=== PATIENT | female | born 1950 | race African-American/Black ===

== ENCOUNTER 2020-06-19 05:35 | Inpatient (IN) ==
[~2020-06-19 05:35] MED LIST: VANCOMYCIN INJ 1,000 MG in SODIUM CHLORIDE 0.9% 250 ML IV ONE; ceFAZolin 1,000 MG in SYRINGE 1 EACH IV ONE
[2020-06-19] MEDS ORDERED: ceFAZolin 1,000 MG VIAL ONE (06:06)
[2020-06-19] MEDS ORDERED: VANCOMYCIN INJ 1,000 MG in SODIUM CHLORIDE 0.9% 250 ML IV ONE (06:30)
[2020-06-19] MEDS ORDERED: ROPIVACAINE 0.5% 30 ML VIAL ONE (06:48)
[2020-06-19] MEDS ORDERED: DEXAMETHASONE 4 MG/1 ML VIAL ONE ×2 (06:48→09:05)
[2020-06-19] MEDS ORDERED: EPINEPHrine 1 MG/ML VIAL ONE (06:48)
[2020-06-19] MEDS ORDERED: BUPIVACAINE SPINAL 0.75% 2 ML AMP SPINAL ONE (06:49)
[2020-06-19] MEDS ORDERED: MIDAZOLAM 2 MG/2 ML VIAL ONE ×2 (06:54→08:49)
[2020-06-19] MEDS ORDERED: fentaNYL 100 MCG/2 ML VIAL ONE (06:54)
[2020-06-19] MEDS ORDERED: KETAMINE 500 MG/10 ML VIAL ONE (06:55)
[2020-06-19] MEDS ORDERED: FAMOTIDINE 20 MG TABLET PO ONE (07:18)
[2020-06-19] MEDS ORDERED: DIAZEPAM 5 MG TABLET PO ONE (07:18)
[2020-06-19] MEDS ORDERED: ACETAMINOPHEN 500 MG TABLET PO ONE (07:18)
[2020-06-19] MEDS ORDERED: ceFAZolin 1,000 MG in SYRINGE 1 EACH IV ONE (07:30)
[2020-06-19] MEDS ORDERED: LACTATED RINGERS 1,000 ML IV SCH (07:30)
[2020-06-19] MEDS ORDERED: PROMETHAZINE 25 MG/1 ML VIAL IM PRN (08:37)
[2020-06-19] MEDS ORDERED: LACTULOSE 20 GM/30 ML UDCUP PO PRN (08:37)
[2020-06-19] MEDS ORDERED: BISACODYL 10 MG SUPP RECTAL PRN (08:37)
[2020-06-19] MEDS ORDERED: diphenhydrAMINE CAP 25 MG CAPSULE PO PRN (08:37)
[2020-06-19] MEDS ORDERED: DEXTROSE 50% 25 GM/50 ML VIAL IV PRN (08:41)
[2020-06-19] MEDS ORDERED: GLUCAGON 1 MG VIAL IM PRN (08:41)
[2020-06-19] MEDS ORDERED: INSULIN NPH SCH (08:45)
[2020-06-19] MEDS ORDERED: [UNRECOGNIZED DRUG - OTHER] SCH (08:45)
[2020-06-19] MEDS ORDERED: SCOPOLAMINE 1.5 MG PATCH TRANSDERM ONE (08:49)
[2020-06-19] MEDS ORDERED: ONDANSETRON 4 MG/2 ML VIAL ONE (09:05)
[2020-06-19] MEDS ORDERED: SODIUM CHLORIDE 0.9% 250 ML IV ONE (09:05)
[2020-06-19] MEDS ORDERED: TRANEXAMIC ACID 1,000 MG/10 ML VIAL ONE (09:05)
[2020-06-19] MEDS ORDERED: propofoL 200 MG/20 ML VIAL IV ONE (09:05)
[2020-06-19] MEDS ORDERED: PHENYLEPHRINE 1 MG/10 ML SYRINGE IV ONE (09:05)
[2020-06-19] MEDS ORDERED: LIDOCAINE 2% 5 ML VIAL ONE (09:05)
[2020-06-19] MEDS ORDERED: LACTATED RINGERS 1,000 ML IV ONE (09:05)
[2020-06-19] MEDS ORDERED: ALBUTEROL/IPRATROPIUM 3 ML NEB RESP TX ONE (10:09)
[2020-06-19] MEDS ORDERED: ONDANSETRON 4 MG/2 ML VIAL IV PRN (12:58)
[2020-06-19] MEDS: HYDROmorphone 2 MG/1 ML VIAL IV PRN ×2 (13:00→13:25)
[2020-06-19] MEDS: ceFAZolin 2,000 MG in PREMIX 1 EACH IV SCH ×2 (15:35→22:44)
[2020-06-19] MEDS: ONDANSETRON 4 MG/2 ML VIAL IV PRN ×2 (15:42→22:43)
[2020-06-19] MEDS: MORPHINE 4 MG/1 ML VIAL IV PRN ×3 (15:46→22:46)
[2020-06-19] MEDS: INSULIN REGULAR 100 UNIT/ML SUBCUT SCH ×3 (16:43→22:48)
[2020-06-19] MEDS: PANTOPRAZOLE 40 MG TABLET PO SCH (16:43)
[2020-06-19] MEDS: GLIMEPIRIDE 2 MG TABLET PO SCH (18:33)
[2020-06-19] MEDS: metFORMIN 500 MG TABLET PO SCH (18:33)
[2020-06-19] MEDS: FONDAPARINUX 2.5 MG/0.5 ML SYRINGE SUBCUT SCH (20:35)
[2020-06-19] MEDS: DOCUSATE SODIUM 100 MG CAPSULE PO SCH (20:35)
[2020-06-19] MEDS: SIMVASTATIN 20 MG TABLET PO SCH (20:36)
[2020-06-20] MEDS: MORPHINE 4 MG/1 ML VIAL IV PRN ×2 (01:47→04:51)
[2020-06-20 06:16] LABS: Basophils % 0.2 % (0.0-0.8); Hematocrit 31.1 VOL% (35.7-47.0); Hemoglobin 10.1 GM/DL (12.0-16.0); Immature Granulocytes % 0.6 %; Immature Granulocytes Absolute 0.05 #; Lymphocytes # 1.6 10*3/uL (1.4-4.0); Lymphocytes % 17.4 % (21.3-54.2); Mean Corpuscular HGB Conc 32.5 GM/DL (32-36); Mean Corpuscular Volume 82.5 FL (87-102); Mean Platelet Volume 10.8 FL (9.6-12.0); Monocytes % 12.2 % (1.7-12.7); Neutrophils % 69.6 % (38.7-73.9); Platelet Count 263 T/CUMM (130-400); Red Blood Count 3.77 MC/CUMM (3.8-5.5); Red Cell Distribution Width 14.9 % (9.3-17.3)
[2020-06-20 06:19] LABS: Calcium 8.6 MG/DL (8.5-10.1); Osmolality,Calculated 280.5 MOS/KG (273-304); Potassium 3.8 MMOL/L (3.5-5.1)
[2020-06-20 06:21] LABS: Calcium 8.8 MG/DL (8.5-10.1); Osmolality,Calculated 276.7 MOS/KG (273-304); Potassium 3.9 MMOL/L (3.5-5.1)
[2020-06-20] MEDS ORDERED: MAGNESIUM SULF RIDER 4 GM in PREMIX 1 EACH IV ONE (08:00)
[2020-06-20] MEDS: INSULIN REGULAR 100 UNIT/ML SUBCUT SCH ×4 (09:41→20:10)
[2020-06-20] MEDS: MELOXICAM 7.5 MG TABLET PO SCH (09:42)
[2020-06-20] MEDS: DOCUSATE SODIUM 100 MG CAPSULE PO SCH ×2 (09:42→20:11)
[2020-06-20] MEDS: hydroCHLOROthiazide 25 MG TABLET PO SCH (09:42)
[2020-06-20] MEDS: amLODIPine 10 MG TABLET PO SCH (09:43)
[2020-06-20] MEDS: GLIMEPIRIDE 2 MG TABLET PO SCH ×2 (09:43→16:21)
[2020-06-20] MEDS: metFORMIN 500 MG TABLET PO SCH ×2 (09:43→16:21)
[2020-06-20] MEDS: PANTOPRAZOLE 40 MG TABLET PO SCH (09:43)
[2020-06-20] MEDS ORDERED: MAGNESIUM SULF RIDER 2 GM in PREMIX 1 EACH IV ONE (18:06)
[2020-06-20] MEDS: SIMVASTATIN 20 MG TABLET PO SCH (20:10)
[2020-06-20] MEDS: FONDAPARINUX 2.5 MG/0.5 ML SYRINGE SUBCUT SCH (20:11)
[2020-06-21 06:28] LABS: Basophils % 0.4 % (0.0-0.8); Eosinophils % 0.5 % (0.00-10.9); Hematocrit 29.7 VOL% (35.7-47.0); Hemoglobin 9.5 GM/DL (12.0-16.0); Immature Granulocytes % 0.6 %; Immature Granulocytes Absolute 0.05 #; Lymphocytes # 1.6 10*3/uL (1.4-4.0); Lymphocytes % 19.1 % (21.3-54.2); Mean Corpuscular Volume 83.2 FL (87-102); Mean Platelet Volume 11.1 FL (9.6-12.0); Monocytes % 8.6 % (1.7-12.7); Neutrophils % 70.8 % (38.7-73.9); Platelet Count 246 T/CUMM (130-400); Red Blood Count 3.57 MC/CUMM (3.8-5.5); White Blood Count 8.2 T/CUMM (4-12)
[2020-06-21 07:19] LABS: Calcium 8.7 MG/DL (8.5-10.1); Osmolality,Calculated 270.4 MOS/KG (273-304); Potassium 3.8 MMOL/L (3.5-5.1)
[2020-06-21] MEDS: DOCUSATE SODIUM 100 MG CAPSULE PO SCH ×2 (08:17→20:22)
[2020-06-21] MEDS: amLODIPine 10 MG TABLET PO SCH (08:17)
[2020-06-21] MEDS: PANTOPRAZOLE 40 MG TABLET PO SCH (08:17)
[2020-06-21] MEDS: metFORMIN 500 MG TABLET PO SCH ×2 (08:17→16:50)
[2020-06-21] MEDS: GLIMEPIRIDE 2 MG TABLET PO SCH ×2 (08:17→16:50)
[2020-06-21] MEDS: hydroCHLOROthiazide 25 MG TABLET PO SCH (08:17)
[2020-06-21] MEDS: MELOXICAM 7.5 MG TABLET PO SCH (08:17)
[2020-06-21] MEDS: INSULIN REGULAR 100 UNIT/ML SUBCUT SCH ×4 (08:18→20:23)
[2020-06-21] MEDS: ONDANSETRON 4 MG/2 ML VIAL IV PRN (08:19)
[2020-06-21] MEDS: FONDAPARINUX 2.5 MG/0.5 ML SYRINGE SUBCUT SCH (20:22)
[2020-06-21] MEDS: SIMVASTATIN 20 MG TABLET PO SCH (20:22)
[2020-06-21] MEDS: MAGNESIUM HYDROXIDE SUSP 30 ML UDCUP PO PRN (20:24)
[2020-06-22] MEDS: MAGNESIUM HYDROXIDE SUSP 30 ML UDCUP PO PRN (05:51)
[2020-06-22] MEDS: GLIMEPIRIDE 2 MG TABLET PO SCH ×2 (08:06→16:16)
[2020-06-22] MEDS: PANTOPRAZOLE 40 MG TABLET PO SCH (08:06)
[2020-06-22] MEDS: MELOXICAM 7.5 MG TABLET PO SCH (08:06)
[2020-06-22] MEDS: DOCUSATE SODIUM 100 MG CAPSULE PO SCH ×2 (08:06→20:50)
[2020-06-22] MEDS: hydroCHLOROthiazide 25 MG TABLET PO SCH (08:06)
[2020-06-22] MEDS: amLODIPine 10 MG TABLET PO SCH (08:06)
[2020-06-22] MEDS: metFORMIN 500 MG TABLET PO SCH ×2 (08:07→16:16)
[2020-06-22] MEDS: INSULIN REGULAR 100 UNIT/ML SUBCUT SCH ×4 (08:07→20:49)
[2020-06-22] MEDS: POLYETHYLENE GLYCOL POWDER 17 GM PACK PO SCH (12:08)
[2020-06-22] MEDS: METOPROLOL TARTRATE 25 MG TABLET PO SCH ×2 (12:08→20:51)
[2020-06-22] MEDS: SIMVASTATIN 20 MG TABLET PO SCH (20:50)
[2020-06-22] MEDS: FONDAPARINUX 2.5 MG/0.5 ML SYRINGE SUBCUT SCH (20:50)
[2020-06-23 04:39] LABS: Basophils % 0.5 % (0.0-0.8); Eosinophils # 0.4 10*3/uL (0.0-0.87); Eosinophils % 5.1 % (0.00-10.9); Hematocrit 29.8 VOL% (35.7-47.0); Hemoglobin 9.2 GM/DL (12.0-16.0); Immature Granulocytes % 0.4 %; Immature Granulocytes Absolute 0.03 #; Lymphocytes # 2.6 10*3/uL (1.4-4.0); Lymphocytes % 31.8 % (21.3-54.2); Mean Corpuscular HGB Conc 30.9 GM/DL (32-36); Mean Corpuscular Volume 83.7 FL (87-102); Mean Platelet Volume 11.1 FL (9.6-12.0); Monocytes % 11.4 % (1.7-12.7); Neutrophils % 50.8 % (38.7-73.9); Platelet Count 290 T/CUMM (130-400); Red Blood Count 3.56 MC/CUMM (3.8-5.5); Red Cell Distribution Width 14.8 % (9.3-17.3); White Blood Count 8.3 T/CUMM (4-12)
[2020-06-23 05:03] LABS: Calcium 8.9 MG/DL (8.5-10.1); Osmolality,Calculated 271.4 MOS/KG (273-304)
[2020-06-23] MEDS: DOCUSATE SODIUM 100 MG CAPSULE PO SCH (10:00)
[2020-06-23] MEDS: GLIMEPIRIDE 2 MG TABLET PO SCH (10:00)
[2020-06-23] MEDS: METOPROLOL TARTRATE 25 MG TABLET PO SCH (10:00)
[2020-06-23] MEDS: PANTOPRAZOLE 40 MG TABLET PO SCH (10:00)
[2020-06-23] MEDS: hydroCHLOROthiazide 25 MG TABLET PO SCH (10:00)
[2020-06-23] MEDS: metFORMIN 500 MG TABLET PO SCH (10:00)
[2020-06-23] MEDS: POLYETHYLENE GLYCOL POWDER 17 GM PACK PO SCH (10:00)
[2020-06-23] MEDS: MELOXICAM 7.5 MG TABLET PO SCH (10:00)
[2020-06-23] MEDS: INSULIN REGULAR 100 UNIT/ML SUBCUT SCH (10:00)
[2020-06-23] MEDS: amLODIPine 10 MG TABLET PO SCH (10:00)
[2020-06-23 11:24] VITALS: BP 141/59
[2020-06-23] MEDS ORDERED: TUBERCULIN SKIN TEST 0.1 ML SYRINGE INTRADERM ONE ×2 (12:12→13:27)
== END 2020-06-23 16:45 | DRG 470 ==
LOC: N.OR 05:35 → N.SDSINP 06:26 → SUATTDRO 08:37 → INTOOBSV 08:37 → N.SDSINP 08:37 → OBSVTOIN 08:37 → N.3E 13:45
PROVIDERS: ADMIT Orthopaedic Surgery; ATTEND Internal Medicine